=== PATIENT | female | born 2000 | race Two or more races ===

== ENCOUNTER 2023-08-24 16:08 | Emergency (ER) | payer OTHER ==
[~2023-08-24] VITALS: Ht 188 cm; Wt 167.6 kg
[2023-08-24 16:53] VITALS: BP 127/83; PULSE 100; RESP 16; TEMP 98.1; O2SAT 96
== END 2023-08-24 17:24 | disposition home or self-care (01) ==
LOC: ER 16:08
DX: S93.402A Sprain of unspecified ligament of left ankle, initial encounter (principal); X50.1XXA Overexertion from prolonged static or awkward postures, initial encounter; Y93.89 Activity, other specified; Y92.89 Other specified places as the place of occurrence of the external cause; Y99.0 Civilian activity done for income or pay
CPT/HCPCS: 73610